=== PATIENT | male | born 1955 | race Caucasian/White ===

== ENCOUNTER 2021-05-21 05:23 | Day surgery (SDC) | payer OTHER, BC, MEDICARE ==
[2021-05-14 11:11] LABS: CLARITY,URINE CLEAR (Clear); COLOR,URINE YELLOW (Yellow); GLUCOSE, URINE >=1000 mg/dl (Neg); KETONES,URINE NEGATIVE (Neg); LEUKOCYTE ESTERASE ,URINE NEGATIVE (Neg); NITRITES, URINE NEGATIVE (Neg); OCCULT BLOOD,URINE NEGATIVE (Neg); PH,URINE 7.5 (4.8-8.0); PROTEIN,URINE NEGATIVE (Neg); UA COLLECTION TYPE VOIDED; UROBILINOGEN,URINE 0.2 E.U/dL (0.2-1.0)
[2021-05-14 11:13] LABS: BASOPHILS # (AUTO) 0.1 X10'3 (0-0.2); BASOPHILS % (AUTO) 0.8 % (0-1); EOSINOPHILS # (AUTO) 0.1 X10'3 (0-0.9); EOSINOPHILS % (AUTO) 1.4 % (0-6); LYMPHOCYTES # (AUTO) 2.1 X10'3 (1.1-4.8); LYMPHOCYTES % (AUTO) 22.9 % (21-51); MEAN CORPUSCULAR HEMOGLOBIN 31.3 PG (27.0-31.0); MEAN CORPUSCULAR HGB CONC 34.4 g/dL (33.0-36.5); MEAN PLATELET VOLUME 8.2 FL (7.4-10.4); MONOCYTES % (AUTO) 11.1 % (2-12); NEUTROPHILS % (AUTO) 63.8 % (42-75); PRE OP HEMATOCRIT 47.3 % (42.0-52.0); PRE OP HEMOGLOBIN 16.3 g/dL (14.0-17.9); PRE OP PLATELET COUNT 292 X10'3 (140-440); RED BLOOD COUNT 5.21 X10'6 (4.70-6.10); RED CELL DISTRIBUTION WIDTH 12.9 % (11.5-14.5)
[2021-05-14 11:21] LABS: BACTERIA,URINE NONE SEEN /HPF (Neg); MUCUS STRANDS NONE SEEN /LPF (Neg); RBC,URINE NONE SEEN /HPF (0-2); SQUAMOUS EPITHELIAL CELL,UR NONE SEEN /LPF (FEW); WBC,URINE 0-4 /HPF (0-4)
[2021-05-14 11:32] LABS: ALBUMIN 4.2 G/DL (3.4-5.0); ALBUMIN/GLOBULIN RATIO 1.3 (1.1-1.5); ALKALINE PHOSPHATASE 59 IU/L (46-116); BLOOD UREA NITROGEN 20 MG/DL (7-18); CHLORIDE 103 MMOL/L (99-107); CREATININE 0.91 MG/DL (0.60-1.10); PRE OP ALT 53 U/L (30-65); PRE OP ANION GAP 11 (8-16); PRE OP AST 25 U/L (10-37); PRE OP BILIRUB, TOTAL 0.7 MG/DL (0.0-1.0); PRE OP GLUCOSE 123 MG/DL (70-104); PRE OP POTASSIUM 3.9 MMOL/L (3.4-5.1); PRE OP SODIUM 142 MMOL/L (135-145); TOTAL CARBON DIOXIDE 27.9 MMOL/L (24-32); TOTAL PROTEIN 7.5 G/DL (6.4-8.2); eGFR 84 ML/MIN
[2021-05-21] VITALS (10 sets, daily range): BP systolic 121–147; BP diastolic 64–85
[~2021-05-21] VITALS: Ht 182.9 cm; Wt 76.7 kg
[~2021-05-21 05:23] MED LIST: ASCO-134 PO; ASPI-611 PO; EMPA25TA PO; ICOS1CAP PO; INSU100I31; LISI20TA28 PO; MAGN400C PO; METF-1203 PO; MULT-1085 PO; ROSU40TA22 PO; SEMA1PEN SQ; ringers solution, lacted 1,000 ML IV SCH
[2021-05-21] MEDS ORDERED: cefazolin/dext.iso 2gm/50ml 50 ML IV ONE (05:30)
[2021-05-21] MEDS ORDERED: famotidine 20mg tablet PO ONE (05:30)
[2021-05-21] MEDS ORDERED: LIDOcaine 1% (10mg/ml) 2ml vial ONE (05:46)
[2021-05-21] MEDS ORDERED: bacitracin 15gm ointment TP ONE (06:58)
[2021-05-21] MEDS ORDERED: sevoflurane 250ml liquid IH ONE (07:09)
[2021-05-21] MEDS ORDERED: fentaNYL/PF 50MCG/1 ML 2ML syringe ONE (07:15)
[2021-05-21] MEDS ORDERED: MIDAZolam 1 MG/ML 5ML VIAL ONE (07:16)
[2021-05-21] MEDS ORDERED: propofol inj 20 ML IV ONE (08:32)
[2021-05-21] MEDS ORDERED: ROPIVAcaine 0.5% (5mg/ml) 30ml vial ONE ×2 (08:32)
[2021-05-21] MEDS ORDERED: morphine 4 MG/ML inj SYRINge IV PRN (08:45)
[2021-05-21] MEDS ORDERED: ringers solution, lacted 1,000 ML IV SCH (08:45)
[2021-05-21] MEDS ORDERED: meperidine/PF 25mg/ml syringe IV PRN ×3 (08:45)
[2021-05-21] MEDS ORDERED: ondansetron/PF 4mg/2ml inj IV PRN (08:45)
[2021-05-21] MEDS ORDERED: proCHLORperazine 10 MG/2 ml inj IV PRN (08:45)
[2021-05-21] MEDS ORDERED: ROPIVAcaine 0.2%/PF PUMP/bolus 545 ML POPLITEAL SCH (08:45)
[2021-05-21] MEDS ORDERED: morphine 2 MG/ML inj. syringe IV PRN (08:45)
[2021-05-21] MEDS ORDERED: ROPIVAcaine 0.2% (10 MG/5 ML) BOLUS INJECTION POPLITEAL PRN (08:45)
--- NOTE | 2021-05-21 10:57 | NUR ---
Received from OR via [facility] IN STABLE CONDTION , accompanied by Anesthesiologist and SMALL BOAT ENGINEER report given by SMALL BOAT ENGINEER AND Anesthesiolgist. Addendum: 05/21/21 at 1122 by Monica Lorenz RN Amended: Links added.
--- NOTE | 2021-05-21 12:37 | NUR ---
PATIENT DISCHARGED FROM PACU IN STABLE CONDITION AFTER WRITTEN AND VERBAL DISCHARGE INSTRUCTIONS GIVEN. PATIENT GAVE VERBAL UNDERSTANDING OF INSTRUCTIONS GIVEN. PATIENT LEFT FACILITY VIA WHEELCHAIR WITH RN. Addendum: 05/21/21 at 1255 by Monica Lorenz RN Amended: Links added.
== END 2021-05-21 12:37 | disposition home or self-care (01) ==
LOC: PAS 05:23
PROVIDERS: ATTEND Podiatrist Foot & Ankle Surgery
DX: M19.072 Primary osteoarthritis, left ankle and foot (principal); M65.872 Other synovitis and tenosynovitis, left ankle and foot; G89.18 Other acute postprocedural pain; I10 Essential (primary) hypertension; E11.9 Type 2 diabetes mellitus without complications; Z79.899 Other long term (current) drug therapy; Z87.891 Personal history of nicotine dependence; Z72.89 Other problems related to lifestyle; Z98.890 Other specified postprocedural states; Z20.822 Contact with and (suspected) exposure to COVID-19; Z82.61 Family history of arthritis; Z83.3 Family history of diabetes mellitus
CPT/HCPCS: 27702; 36415; 64446; 64447; 73600; 76000; 76937; 76942; 80053; 81001; 82948; 85025; 93005; A6223; C1713; C1776; J2001; J2250; J2704; J2795; J3010; J7120; U0003; U0005; Z7506; Z7508; Z7512; A4618; A6253; A6449; A7000